=== PATIENT | male | born 1975 | race African-American/Black ===

== ENCOUNTER 2017-02-11 17:35 | Emergency (ER) | payer SELFPAY ==
[2017-02-11] MEDS ORDERED: Naproxen 500 MG TAB ONE (19:03)
[2017-02-11] MEDS ORDERED: Magnesium Citrate 300 ML BOT ONE (19:03)
--- NOTE | 2017-02-11 19:42 | RAD ---
ABDOMEN TWO VIEWS ONE VIEW CHEST X-RAY 02/11/17 HISTORY: Pain. COMPARISON: None. FINDINGS: The lungs are clear. No pneumothorax or effusion. Cardiac silhouette and mediastinal contours are no rmal. No dilated air filled loops of large or small bowel. No free air under the hemidiaphragm. 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 IMPRESSION: 1. No acute intrathoracic or intra-abdominal abnormality. 2. 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 Recommend correlation for history of inflammatory arthritis. POS: [facility]
[2017-02-11 19:56] LABS: Clarity Turbid (Clear); Leukocyte Large (Negative); Nitrite Negative (Negative); Protein, Urine (Dipstick) 100 mg/dL (Neg-Trace); pH, Urine 5.5 (5.0-9.0)
[2017-02-11 19:57] LABS: Bacteria/HPF 4+ HPF (None Seen); Bilirubin Negative (Negative); Blood, Urine Large (Negative); Glucose, Urine (Dipstick) Negative (Negative); RBC/HPF GREATER THAN 50-TNTC HPF (0-3); Renal Epithelial 0-3 HPF (0-3); Transitional Epithelial 0-3 HPF (0-3)
[2017-02-11 20:09] LABS: Hemoglobin 15.9 g/dL (14.0-18.0); Mean Corpuscular HGB CONC 32.7 g/dL (32.0-36.0); Mean Corpuscular Hemoglobin 27.9 pg (27.0-31.0); Mean Corpuscular Volume 85.3 fl (80.0-94.0); Mean Platelet Volume 7.2 fL (7.4-10.4); Platelet Count 292 thou/uL (130-400); RBC Distribution Width 11.4 % (11.5-14.5); White Blood Cell (WBC) Count 9.6 thou/uL (4.8-10.8)
[2017-02-11 20:10] LABS: Band 6 % (5-11); Lymphocytes 16 % (21-51)
[2017-02-11 20:11] LABS: Blast 1 % (0-0); Monocytes 8 % (0-10); Neutrophil 68 % (42-75)
[2017-02-11 20:14] LABS: ALT (SGPT) 10 U/L (8-55); AST (SGOT) 14 U/L (5-34); Albumin 4.6 g/dL (3.5-5.0); Alkaline Phosphatase 66 U/L (40-150); Anion Gap 16 mmol/L (10-20); BUN (Urea Nitrogen) 10 mg/dL (8.9-20.6); Bilirubin, Total 0.9 mg/dL (0.2-1.2); Calc. Creatinine Clearance 0 mL/min (70-130); Calcium 10.2 mg/dL (7.8-10.44); Carbon Dioxide 26 mmol/L (22-29); Chloride 100 mmol/L (98-107); Estimated GFR-MDRD Greater than 90; Globulin 4.3 g/dL (2.4-3.5); Glucose 86 mg/dL (70-105); Lipase 43 U/L (8-78); Potassium 3.9 mmol/L (3.5-5.1); Protein, Total 8.9 g/dL (6.0-8.3); Sodium 138 mmol/L (136-145)
[2017-02-11] MEDS ORDERED: Ciprofloxacin 500 MG TAB ONE (20:52)
== END 2017-02-11 20:59 | disposition home or self-care (01) ==
LOC: MADERS 17:35
DX: N39.0 Urinary tract infection, site not specified (principal); I10 Essential (primary) hypertension; F17.210 Nicotine dependence, cigarettes, uncomplicated; Z79.899 Other long term (current) drug therapy
CPT/HCPCS: 36415; 74022; 80053; 81001; 82150; 83690; 85025; 87077; 87086; 87186

== ENCOUNTER 2017-07-10 13:58 | Emergency (ER) | payer SELFPAY ==
[2017-07-10] MEDS ORDERED: Naproxen 500 MG TAB ONE (14:35)
== END 2017-07-10 14:37 | disposition home or self-care (01) ==
LOC: MADERS 13:58
DX: M25.551 Pain in right hip (principal); I10 Essential (primary) hypertension; F17.210 Nicotine dependence, cigarettes, uncomplicated
CPT/HCPCS: 99283

== ENCOUNTER 2017-08-12 14:28 | Emergency (ER) | payer SELFPAY ==
[2017-08-12] MEDS ORDERED: Acetaminophen 325 MG TAB ONE (15:23)
== END 2017-08-12 15:35 | disposition home or self-care (01) ==
LOC: MADERS 14:28
DX: M77.9 Enthesopathy, unspecified (principal); I10 Essential (primary) hypertension; F17.210 Nicotine dependence, cigarettes, uncomplicated; Z79.899 Other long term (current) drug therapy
CPT/HCPCS: 99283

== ENCOUNTER 2017-09-22 08:04 | Emergency (ER) | payer SELFPAY | END 2017-09-22 08:33 | disposition home or self-care (01) | LOC: MADERS 08:04 | DX: M25.572 Pain in left ankle and joints of left foot (principal); M25.571 Pain in right ankle and joints of right foot; I10 Essential (primary) hypertension; F17.210 Nicotine dependence, cigarettes, uncomplicated | CPT/HCPCS: 99284 ==

== ENCOUNTER 2017-09-23 09:21 | Emergency (ER) | payer SELFPAY ==
[2017-09-23] MEDS ORDERED: Benzonatate 100 MG CAP ONE (11:12)
[2017-09-23] MEDS ORDERED: AMOXicillin 250 MG CAP ONE (11:12)
== END 2017-09-23 11:25 | disposition home or self-care (01) ==
LOC: MADERS 09:21
DX: J20.9 Acute bronchitis, unspecified (principal); F17.210 Nicotine dependence, cigarettes, uncomplicated
CPT/HCPCS: 87804; 99283

== ENCOUNTER 2017-10-17 04:52 | Emergency (ER) | payer SELFPAY | END 2017-10-17 05:25 | disposition home or self-care (01) | LOC: MADERS 04:52 | DX: G62.9 Polyneuropathy, unspecified (principal); I10 Essential (primary) hypertension; F17.210 Nicotine dependence, cigarettes, uncomplicated; Z79.899 Other long term (current) drug therapy | CPT/HCPCS: 36416; 99283 ==

== ENCOUNTER 2017-11-05 08:18 | Emergency (ER) | payer SELFPAY ==
[2017-11-05] MEDS ORDERED: Ibuprofen 800 MG TAB ONE (09:32)
[2017-11-05] MEDS ORDERED: Acetaminophen 500 MG TAB ONE (09:33)
--- NOTE | 2017-11-05 09:47 | RAD ---
THREE VIEWS OF THE RIGHT FOOT: INDICATION: Right foot pain. FINDINGS: No acute fracture or subluxation is evident. The Lisfranc alignment appears within normal limits. N o radiopaque foreign body is evident. IMPRESSION: No acute osseous abnormality. POS: [facility]
== END 2017-11-05 10:20 | disposition home or self-care (01) ==
LOC: MADERS 08:18
DX: G62.9 Polyneuropathy, unspecified (principal); F17.210 Nicotine dependence, cigarettes, uncomplicated; Z79.899 Other long term (current) drug therapy

== ENCOUNTER 2017-11-27 20:37 | Emergency (ER) | payer SELFPAY | END 2017-11-27 21:48 | disposition home or self-care (01) | LOC: MADERS 20:37 | DX: G57.91 Unspecified mononeuropathy of right lower limb (principal); I10 Essential (primary) hypertension; F17.210 Nicotine dependence, cigarettes, uncomplicated | CPT/HCPCS: 99283 ==

== ENCOUNTER 2017-11-28 13:44 | Emergency (ER) | payer OTHER, SELFPAY ==
[2017-11-28 14:31] LABS: #Basophils 0.1 thou/uL (0.0-0.2); #Lymphocytes 1.4 thou/uL (1.20-3.40); #Monocytes 0.5 thou/uL (0.11-0.59); #Neutrophils 1.9 thou/uL (1.40-6.50); %Basophils 1.7 % (0.0-1.0); %Eosinophils 0.9 % (0.0-10.0); %Lymphocytes 36.1 % (21.0-51.0); %Monocytes 11.9 % (0.0-10.0); %Neutrophils 49.5 % (42.0-75.0); Hemoglobin 14.2 g/dL (14.0-18.0); Mean Corpuscular HGB CONC 32.2 g/dL (32.0-36.0); Mean Corpuscular Hemoglobin 28.1 pg (27.0-31.0); Mean Corpuscular Volume 87.3 fl (80.0-94.0); Platelet Count 254 thou/uL (130-400); RBC Distribution Width 12.7 % (11.5-14.5); Red Blood Cell (RBC) Count 5.06 mill/uL (4.70-6.10); White Blood Cell (WBC) Count 3.8 thou/uL (4.8-10.8)
[2017-11-28 14:43] LABS: ALT (SGPT) 14 U/L (8-55); AST (SGOT) 23 U/L (5-34); Albumin 4.3 g/dL (3.5-5.0); Alkaline Phosphatase 69 U/L (40-150); Anion Gap 15 mmol/L (10-20); BUN (Urea Nitrogen) 14 mg/dL (8.9-20.6); Bilirubin, Total 1.5 mg/dL (0.2-1.2); Calc. Creatinine Clearance 0 mL/min (70-130); Calcium 9.3 mg/dL (7.8-10.44); Carbon Dioxide 24 mmol/L (22-29); Chloride 106 mmol/L (98-107); Estimated GFR-MDRD Greater than 90; Globulin 3.3 g/dL (2.4-3.5); Glucose 84 mg/dL (70-105); Magnesium 2.1 mg/dL (1.6-2.6); Potassium 3.9 mmol/L (3.5-5.1); Protein, Total 7.6 g/dL (6.0-8.3); Sodium 141 mmol/L (136-145)
[2017-11-28 14:49] LABS: CKMB 2.8 ng/mL (0-6.6); Troponin I Less than 0.010 ng/mL (< 0.028)
--- NOTE | 2017-11-28 15:06 | RAD ---
PA AND LATERAL CHEST: History: Near syncope. Palpitations. FINDINGS: The heart size is normal. The lungs are well expanded without focal areas of consolidation, pneumotho races or pleural effusions. No acute osseous abnormality is seen. IMPRESSION: No radiographic evidence of acute cardiopulmonary process. POS: [facility]
== END 2017-11-28 17:41 | disposition home or self-care (01) ==
LOC: MADERS 13:44
DX: R94.6 Abnormal results of thyroid function studies (principal); R00.2 Palpitations; E11.9 Type 2 diabetes mellitus without complications; I10 Essential (primary) hypertension; F17.210 Nicotine dependence, cigarettes, uncomplicated; Z79.899 Other long term (current) drug therapy
CPT/HCPCS: 36415; 71046; 80053; 82553; 83735; 84443; 84484; 85025; 93005

== ENCOUNTER 2017-12-31 15:57 | Emergency (ER) | payer OTHER ==
[2017-12-31] MEDS ORDERED: Benzonatate 100 MG CAP ONE (16:28)
[2017-12-31] MEDS ORDERED: cefTRIAXone\\ROCEPHIN 1 GM VIAL ONE (16:29)
[2017-12-31] MEDS ORDERED: Lidocaine 1% 20 ML MDV ONE (16:29)
== END 2017-12-31 17:00 | disposition home or self-care (01) ==
LOC: MADERS 15:57
DX: J20.9 Acute bronchitis, unspecified (principal); I10 Essential (primary) hypertension; F17.210 Nicotine dependence, cigarettes, uncomplicated; Z79.899 Other long term (current) drug therapy
CPT/HCPCS: 96372; 99406; J0696; J2001

== ENCOUNTER 2018-01-16 16:04 | Emergency (ER) | payer OTHER ==
--- NOTE | 2018-01-16 17:42 | RAD ---
THREE VIEWS RIGHT FOOT: 01/16/18 HISTORY: Right foot numbness. AP, lateral, and oblique views right foot is obtained on 01/16/18. COMPARISON: Comparison made to a previous exam from 11/05/17. FINDINGS/IMPRESSION: Three views right foot again demonstrates no significant evidence of right foot fractures, subluxatio ns or bony lesions. No significant interval change is seen since the previous comparison radiograph f rom two months earlier. POS: [facility]
[2018-01-16] MEDS ORDERED: HYDROcodone/Acetaminophen 10/325 mg Tablet ONE (18:20)
[2018-01-16] MEDS ORDERED: predniSONE 20 MG TAB ONE (18:20)
[2018-01-16] MEDS ORDERED: Indomethacin 25 mg Capsule ONE (18:20)
== END 2018-01-16 18:30 | disposition home or self-care (01) ==
LOC: MADERS 16:04
DX: M72.2 Plantar fascial fibromatosis (principal); I10 Essential (primary) hypertension; E11.9 Type 2 diabetes mellitus without complications; F17.210 Nicotine dependence, cigarettes, uncomplicated
CPT/HCPCS: 36416; J7506

== ENCOUNTER 2018-02-03 20:35 | Emergency (ER) | payer OTHER ==
[2018-02-03] MEDS ORDERED: Ibuprofen 800 MG TAB ONE (21:01)
== END 2018-02-03 21:05 | disposition home or self-care (01) ==
LOC: MADERS 20:35
DX: S80.12XA Contusion of left lower leg, initial encounter (principal); E11.9 Type 2 diabetes mellitus without complications; I10 Essential (primary) hypertension; F17.210 Nicotine dependence, cigarettes, uncomplicated; Z79.4 Long term (current) use of insulin; Z79.899 Other long term (current) drug therapy; X58.XXXA Exposure to other specified factors, initial encounter
CPT/HCPCS: 99283

== ENCOUNTER 2018-02-25 18:30 | Emergency (ER) | payer OTHER | END 2018-02-25 19:30 | disposition home or self-care (01) | LOC: MADERS 18:30 | DX: G44.209 Tension-type headache, unspecified, not intractable (principal); I10 Essential (primary) hypertension; M10.9 Gout, unspecified; F17.210 Nicotine dependence, cigarettes, uncomplicated; Z79.899 Other long term (current) drug therapy | CPT/HCPCS: 99283 ==

== ENCOUNTER 2018-04-14 21:38 | Emergency (ER) | payer OTHER | END 2018-04-14 22:17 | disposition home or self-care (01) | LOC: MADERS 21:38 | DX: H81.399 Other peripheral vertigo, unspecified ear (principal); M10.9 Gout, unspecified; E11.9 Type 2 diabetes mellitus without complications; I10 Essential (primary) hypertension; F17.210 Nicotine dependence, cigarettes, uncomplicated; Z79.899 Other long term (current) drug therapy | CPT/HCPCS: 99283 ==

== ENCOUNTER 2018-04-20 12:35 | Emergency (ER) | payer OTHER, SELFPAY | END 2018-04-20 13:52 | disposition home or self-care (01) | LOC: MADERS 12:35 | DX: M54.5 Low back pain (principal); I10 Essential (primary) hypertension; E11.9 Type 2 diabetes mellitus without complications; F17.210 Nicotine dependence, cigarettes, uncomplicated; Z79.899 Other long term (current) drug therapy | CPT/HCPCS: 99283 ==

== ENCOUNTER 2018-07-13 20:50 | Emergency (ER) | payer OTHER, SELFPAY ==
[2018-07-13] MEDS ORDERED: Tetracaine 0.5% OPHTH SOLN/PF 4 ML BOT ONE (21:20)
[2018-07-13] MEDS ORDERED: Ketorolac Tromethamine 30 MG/ML VIAL ONE (21:22)
[2018-07-13] MEDS ORDERED: Acetaminophen 500 MG TAB ONE (21:22)
[2018-07-13] MEDS ORDERED: acetaZOLAMIDE Sodium 500 mg Vial ONE (21:48)
[2018-07-13] MEDS ORDERED: Sterile Water 10 ML ONE (22:00)
== END 2018-07-13 22:52 | disposition left against medical advice (07) ==
LOC: MADERS 20:50
DX: H40.20X0 Unspecified primary angle-closure glaucoma, stage unspecified (principal); M10.9 Gout, unspecified; I10 Essential (primary) hypertension; F17.210 Nicotine dependence, cigarettes, uncomplicated; Z79.899 Other long term (current) drug therapy
CPT/HCPCS: 96372; 96374; A4216; J1120; J1885

== ENCOUNTER 2018-07-23 19:04 | Emergency (ER) | payer OTHER ==
--- NOTE | 2018-07-23 19:59 | RAD ---
LEFT ANKLE THREE VIEWS: History: Injury with pain. FINDINGS: No significant soft tissue swelling. No evidence of fracture. IMPRESSION: No acute fracture. POS: [facility]
[2018-07-23] MEDS ORDERED: Acetaminophen 500 MG TAB ONE (20:40)
[2018-07-23] MEDS ORDERED: Ibuprofen 800 MG TAB ONE (20:40)
== END 2018-07-23 20:45 | disposition home or self-care (01) ==
LOC: MADERS 19:04
DX: S93.402A Sprain of unspecified ligament of left ankle, initial encounter (principal); M10.9 Gout, unspecified; I10 Essential (primary) hypertension; F17.210 Nicotine dependence, cigarettes, uncomplicated; Z79.899 Other long term (current) drug therapy; W20.8XXA Other cause of strike by thrown, projected or falling object, initial encounter

== ENCOUNTER 2018-09-11 12:35 | Emergency (ER) | payer SELFPAY | END 2018-09-11 13:30 | disposition home or self-care (01) | LOC: MADERS 12:35 | DX: B34.9 Viral infection, unspecified (principal); M10.9 Gout, unspecified; I10 Essential (primary) hypertension; F17.210 Nicotine dependence, cigarettes, uncomplicated; Z79.899 Other long term (current) drug therapy | CPT/HCPCS: 99283 ==

== ENCOUNTER 2018-11-12 07:08 | Emergency (ER) | payer OTHER | END 2018-11-12 08:55 | disposition home or self-care (01) | LOC: MADERS 07:08 | DX: G62.9 Polyneuropathy, unspecified (principal); I10 Essential (primary) hypertension; Z71.6 Tobacco abuse counseling; M10.9 Gout, unspecified; F17.210 Nicotine dependence, cigarettes, uncomplicated | CPT/HCPCS: 36416; 99406 ==

== ENCOUNTER 2018-12-13 14:16 | Outpatient (CLI) | payer OTHER ==
--- NOTE | 2018-12-13 14:47 | RAD ---
XR Lumbar Spine 2 Or 3 View History: [Low back pain] Comparison: None. Findings: There is a lumbosacral transitional vertebra with the enlarged left lowest lumbar transvers e process having anomalous articulation with the sacrum. No acute fracture or malalignment. 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
== END 2018-12-13 14:17 | disposition home or self-care (01) ==
LOC: MADLABBHPM 14:16
PROVIDERS: ATTEND Family Medicine
DX: M54.5 Low back pain (principal); G95.89 Other specified diseases of spinal cord; M51.37 Other intervertebral disc degeneration, lumbosacral region
CPT/HCPCS: 36415; 72100; 86812

== ENCOUNTER 2019-03-31 10:58 | Emergency (ER) | payer OTHER | END 2019-03-31 11:40 | disposition home or self-care (01) | LOC: MADERS 10:58 | DX: M54.5 Low back pain (principal); I10 Essential (primary) hypertension; M10.9 Gout, unspecified; F17.210 Nicotine dependence, cigarettes, uncomplicated; Z79.899 Other long term (current) drug therapy | CPT/HCPCS: 99283 ==